=== PATIENT | male | born 1955 | race Two or more races ===

== ENCOUNTER 2017-01-25 14:21 | Emergency (ER) | payer MEDICAID ==
[~2017-01-25] VITALS: Ht 162.6 cm; Wt 59.0 kg
[2017-01-25] MEDS ORDERED: COREG3.125 MG ORAL (14:35)
[2017-01-25] MEDS ORDERED: CEFOXITIN2 GM IV (14:35)
[2017-01-25] MEDS ORDERED: ASPIRIN-LOW81 MG ORAL (14:35)
[2017-01-25] MEDS ORDERED: VITAMIN D250000 UNI1 ORAL (14:36)
[2017-01-25] MEDS ORDERED: LEVEMIR100 UNIT/1 SUBQ (14:36)
[2017-01-25] MEDS ORDERED: PRO-STAT LIQUID30 ML ORAL (14:38)
[2017-01-25] MEDS ORDERED: MULTIPLE VITAM1 EAC5 PO (14:38)
[2017-01-25] MEDS ORDERED: PRINIVIL10 MG ORAL (14:38)
[2017-01-25] MEDS ORDERED: NOVOLOG100 UNIT/3 SUBQ (14:38)
--- NOTE | 2017-01-25 14:39 | Emergency Room Report ---
History of Present Illness General Chief Complaint: Vomiting Source: Patient, Medical Record, EMS Present Illness HPI 61-year-old male history of hypertension, diabetes, anemia, heart failure, left foot osteomyelitis with wound VAC and right upper extremity PICC line, sent from shelter for intractable nausea vomiting and decreased by mouth intake for 3 days. Patient currently seeing that he has had more than 5 episodes of nausea and vomiting for the last 3 days, also states that he had some loose stool yesterday. Complaining of mild epigastric and left upper quadrant pain only. Denies any fever chills chest pain shortness of breath Allergies: Coded Allergies: No Known Allergies (Unverified , 01/25/17) Patient History Past Medical History: see triage record Past Surgical History: none Pertinent Family History: none Reviewed Nursing Documentation: PMH: Agreed, PSxH: Agreed Nursing Documentation-PMH Hx Cardiac Problems: Yes - Heart Failure, Anemia Hx Hypertension: Yes Hx Diabetes: Yes - Type 2 (Foot Ulcer) Hx Gastrointestinal Problems: Yes - GERD Review of Systems All Other Systems: negative except mentioned in HPI Physical Exam Vital Signs Date Time Temp Pulse Resp B/P (MAP) Pulse Ox O2 Delivery O2 Flow Rate FiO2 01/25/17 14:16 97.3 85 12 126/86 99 Room Air Sp02 EP Interpretation: reviewed, normal General Appearance: other - Middle aged male, awake and alert, calm and cooperative, does not appear to be in pain Head: normocephalic, atraumatic Eyes: bilateral eye normal inspection, bilateral eye PERRL, bilateral eye EOMI ENT: normal ENT inspection, normal pharynx, normal voice, moist mucus membranes Neck: normal inspection, full range of motion, supple Respiratory: normal inspection, lungs clear, normal breath sounds, no respiratory distress, no retraction, no wheezing, speaking full sentences, chest symmetrical Cardiovascular #1: normal inspection, regular rate, rhythm, no edema, normal capillary refill, other - External zoll monitor attached with patient Cardiovascular #2: 2+ radial (R), 2+ radial (L) Gastrointestinal: other - Mild epigastric and left upper quadrant tenderness, no guarding no rebound, normal bowel sounds auscultated Musculoskeletal: other - Full range of motion all extremities, left foot with dressing clean dry and intact, attached to a wound VAC. Patient also with right upper extremity PICC line Neurologic: normal inspection, alert, oriented x3, responsive, motor strength/ tone normal, sensory intact, speech normal Psychiatric: normal inspection, judgement/insight normal, memory normal Skin: normal inspection, normal color, warm/dry, well hydrated, normal turgor Medical Decision Making Diagnostic Impression: Primary Impression: Nausea & vomiting Additional Impressions: Decreased oral intake Renal insufficiency ER Course 61-year-old male with nausea and vomiting for 3 days, diarrhea Differential Diagnosis: Gastritis, gastroenteritis, cholecystitis, appendicitis, cardiac, UTI/pyelo Possible C. difficile abdomen nontender w/ exception of mild epigastric tenderness, will hold CT for now Plan: Basic labs, ua, ekg pain control, IVF ER course: Patient has remained HD stable during ED stay. no further episodes n/v here labs unremarkable excpet cr 2.2 unknown baseline repeat abd exam benign gentle hydration given will admit patient / to dehydration/dec po intake Disposition: Patient will be transferred to outside facility secondary to insurance purposes. I endorsed the patient to Dr. Wells who has accepted patient to go to a telemetry bed Please note that this Emergency Department Report was dictated using [employer] blasting technology software, occasionally this can lead to erroneous entry secondary to interpretation by the dictation equipment EKG Diagnostic Results EP Interpretation: Yes Rate: normal Rhythm: NSR ST Segments: V5 and V6 ST depression, T wave inversion in aVL ASA given to patient: no Rhythm Strip EP Interpretation: Yes Rate: 84 Rhythm: NSR, no PVCs, no ectopy Chest X-ray CXR: Ordered: Yes 1 view Indication: Chest pain EP interpretation: Yes Interpretation: cardiomegaly Impression: cardiomegaly Electronically signed by Pradip Zapata MD Laboratory Tests Test 01/25/17 14:40 01/25/17 14:50 01/25/17 15:10 White Blood Count 8.5 K/UL (4.8-10.8) Red Blood Count 3.81 M/UL (4.70-6.10) L Hemoglobin 11.9 G/DL (14.2-18.0) L Hematocrit 36.9 % (42.0-52.0) L Mean Corpuscular Volume 97 FL (80-99) Mean Corpuscular Hemoglobin 31.2 PG (27.0-31.0) H Mean Corpuscular Hemoglobin Concent 32.2 G/DL (32.0-36.0) Red Cell Distribution Width 13.3 % (11.6-14.8) Platelet Count 248 K/UL (150-450) Mean Platelet Volume 5.5 FL (6.5-10.1) L Neutrophils (%) (Auto) 63.7 % (45.0-75.0) Lymphocytes (%) (Auto) 29.5 % (20.0-45.0) Monocytes (%) (Auto) 5.5 % (1.0-10.0) Eosinophils (%) (Auto) 0.6 % (0.0-3.0) Basophils (%) (Auto) 0.7 % (0.0-2.0) Sodium Level 137 MMOL/L (136-145) Potassium Level 3.8 MMOL/L (3.5-5.1) Chloride Level 102 MMOL/L (98-107) Carbon Dioxide Level 26 MMOL/L (21-32) Anion Gap 9 mmol/L (5-15) Blood Urea Nitrogen 28 mg/dL (7-18) H Creatinine 2.2 MG/DL (0.55-1.30) H Estimate Glomerular Filtration Rate 30.7 mL/min (>60) Glucose Level 135 MG/DL (74-106) H Calcium Level 8.4 MG/DL (8.5-10.1) L Total Bilirubin 0.9 MG/DL (0.2-1.0) Aspartate Amino Transferase (AST) 19 U/L (15-37) Alanine Aminotransferase (ALT) 13 U/L (12-78) Alkaline Phosphatase 124 U/L (46-116) H Troponin I 0.026 ng/mL (0.000-0.056) Total Protein 7.8 G/DL (6.4-8.2) Albumin 2.7 G/DL (3.4-5.0) L Globulin 5.1 g/dL Albumin/Globulin Ratio 0.5 (1.0-2.7) L Lipase 297 U/L (73-393) Urine Color Elizabeth Urine Appearance Clear Urine pH 5 (4.5-8.0) Urine Specific Constantia 1.020 (1.005-1.035) Urine Protein 4+ (NEGATIVE) H Urine Glucose (UA) Negative (NEGATIVE) Urine Ketones Negative (NEGATIVE) Urine Occult Blood 3+ (NEGATIVE) H Urine Nitrite Negative (NEGATIVE) Urine Bilirubin Negative (NEGATIVE) Urine Ictotest Negative Urine Urobilinogen Normal MG/DL (0.0-1.0) Urine Leukocyte Esterase 1+ (NEGATIVE) H Urine RBC 2-4 /HPF (0 - 0) H Urine WBC 5-10 /HPF (0 - 0) H Urine Squamous Epithelial Cells Occasional /LPF Urine Bacteria Few /HPF (NONE) Urine Hyaline Casts 2-4 /LPF (NONE) H Lactic Acid Level Pending Last Vital Signs Date Time Temp Pulse Resp B/P (MAP) Pulse Ox O2 Delivery O2 Flow Rate FiO2 01/25/17 14:16 97.3 85 12 126/86 99 Room Air Pradip Zapata M.D. Jan 25, 2017 14:39
[2017-01-25] MEDS ORDERED: ACETAMINOPHEN325 M1 ORAL (14:40)
[2017-01-25] MEDS ORDERED: PROTONIX40 MG ORAL (14:40)
[2017-01-25] MEDS ORDERED: BRILINTA90 MG PO (14:40)
[2017-01-25] MEDS ORDERED: ZOFRAN4 M1 ORAL (14:41)
[2017-01-25 14:52] LABS: BASOPHILS % (AUTO) 0.7 % (0.0-2.0); EOSINOPHILS % (AUTO) 0.6 % (0.0-3.0); LYMPHOCYTES % (AUTO) 29.5 % (20.0-45.0); MEAN CORPUSCULAR HEMOGLOBIN 31.2 PG (27.0-31.0); MEAN CORPUSCULAR HGB CONC 32.2 G/DL (32.0-36.0); MEAN CORPUSCULAR VOLUME 97 FL (80-99); MEAN PLATELET VOLUME 5.5 FL (6.5-10.1); MONOCYTES % (AUTO) 5.5 % (1.0-10.0); NEUTROPHILS % (AUTO) 63.7 % (45.0-75.0); PLATELET COUNT 248 K/UL (150-450); RED BLOOD COUNT 3.81 M/UL (4.70-6.10); RED CELL DISTRIBUTION WIDTH 13.3 % (11.6-14.8); WHITE BLOOD COUNT 8.5 K/UL (4.8-10.8)
[2017-01-25 15:01] VITALS: BP 133/96
[2017-01-25 15:05] LABS: ANION GAP 9 mmol/L (5-15); CALCIUM 8.4 MG/DL (8.5-10.1); CARBON DIOXIDE 26 MMOL/L (21-32); CHLORIDE 102 MMOL/L (98-107); CREATININE 2.2 MG/DL (0.55-1.30); GLOMERULAR FILTRATION RATE 30.7 mL/min (>60); POTASSIUM 3.8 MMOL/L (3.5-5.1); SODIUM 137 MMOL/L (136-145)
[2017-01-25 15:09] LABS: ALANINE AMINOTRANSFERASE 13 U/L (12-78); ALBUMIN/GLOBULIN RATIO 0.5 (1.0-2.7); ASPARTATE AMINO TRANSFERASE 19 U/L (15-37); LIPASE 297 U/L (73-393); TOTAL PROTEIN 7.8 G/DL (6.4-8.2)
[2017-01-25 15:27] LABS: APPEARANCE,URINE CLEAR; KETONES,URINE NEGATIVE (NEGATIVE); LEUKOCYTE ESTERASE ,URINE 1+ (NEGATIVE); NITRITE,URINE NEGATIVE (NEGATIVE); PH,URINE 5 (4.5-8.0); PROTEIN,URINE 4+ (NEGATIVE); UROBILINOGEN,URINE NORMAL MG/DL (0.0-1.0)
[2017-01-25 15:44] LABS: SQUAMOUS EPITHELIAL CELL,UR OCCASIONAL /LPF (NONE/OCC)
[2017-01-25 15:45] LABS: BACTERIA,URINE FEW /HPF; ICTOTEST NEGATIVE
[2017-01-25 17:16] VITALS: BP 135/88
[2017-01-25 18:12] VITALS: BP 126/95
--- NOTE | 2017-01-26 10:34 | Diagnostic Imaging Report ---
Indication: Chest pain Comparison: None A single view chest radiograph was obtained. Findings: The client is in good position with the tip in the SVC. The heart is enlarged. Lungs are clear. No effusions are seen. Impression: PICC line in good position
--- NOTE | 2017-01-27 18:41 | Cardiology Report ---
APPROVED REPORT EKG Measurement Heart [id number] Normal sinus rhythm Possible Left atrial enlargement Left axis deviation Prolonged QT Abnormal ECG
== END 2017-01-25 18:12 | disposition short-term general hospital (02) ==
LOC: EDBD 14:21 → EMR 15:10
DX: R11.2 Nausea with vomiting, unspecified (principal); N28.9 Disorder of kidney and ureter, unspecified; R19.7 Diarrhea, unspecified
CPT/HCPCS: 36415; 71010; 80053; 81003; 82962; 83605; 83690; 84484; 85025; 87040; 93005; 96361; 96374; 96375; 99284; J2405; S0028